=== PATIENT | female | born 1985 | race Two or more races ===

== ENCOUNTER → 2017-09-02 | Emergency (ER) | payer OTHER ==
[~2017-09-02] VITALS: Ht 157.5 cm; Wt 59.0 kg
[~2017-09-02] MED LIST: ORTHO-CYCLEN1 TAB
== END | disposition home or self-care (01) ==
LOC: ER 09:44
DX: K52.9 Noninfective gastroenteritis and colitis, unspecified (principal); N39.0 Urinary tract infection, site not specified